=== PATIENT | male | born 1940 | race Caucasian/White ===

== ENCOUNTER 2019-04-15 12:54 | Inpatient (IN) | payer OTHER, MEDICARE ==
[~2019-04-15] VITALS: Ht 165.1 cm; Wt 86.4 kg
[~2019-04-15 12:54] MED LIST: ACCUNEB 0.0.63 MG/3 INH; AUGMENTIN 500 M1 TAB PO; COUMADIN2.5 M1 PO; LASIX20 MG PO; LOPRESSOR25 MG PO; Lovenox40 MG/0.4 SC; MULTI VITAMIN/M1 TAB PO; OMEPRAZOLE D/R20 MG PO; PREVACID SOLUTA30 MG PO; SIMVASTATIN80 MG PO; SPIRIVA -- 3018 MCG PO; ULTRAM50 MG PO; VICODIN 5/500 505 MG PO; ZOFRAN ODT4 MG SL
[2019-04-15 13:05] VITALS: BP 143/95
[2019-04-15 13:26] LABS: BASO % 0.6 % (0.0-1.0); EOS # 0.1 10*3/uL (0.0-0.4); EOS % 0.7 % (1.0-4.0); HEMATOCRIT 45.3 % (42.0-52.0); HEMOGLOBIN 14.6 g/dl (14.0-18.0); LYMPH # 1.1 10*3/uL (1.3-4.4); LYMPH % 15.3 % (27.0-41.0); MEAN CELL VOLUME 94.2 fl (80.0-94.0); MEAN CORPUSCULAR HGB 30.4 pg (27.0-31.0); MEAN CORPUSCULAR HGB CONC 32.2 g/dl (33.0-37.0); MEAN PLATELET VOLUME 9.2 fl (9.6-12.3); MONO # 0.9 10*3/uL (0.1-1.0); MONO % 12.5 % (3.0-9.0); NEUT # 4.9 10*3/uL (2.3-7.9); NEUT % 70.6 % (47.0-73.0); PLATELET COUNT AUTOMATED 227 10*3/uL (130-400); RED BLOOD COUNT 4.81 10*6/uL (4.50-5.90); RED CELL DISTRI WIDTH 14.3 % (0-14.5); WHITE BLOOD COUNT 6.9 10*3/uL (4.8-10.8)
[2019-04-15 13:36] LABS: ACT PARTIAL THROMBO TIME 26.4 SECONDS (20.0-32.1)
[2019-04-15 13:43] LABS: ALBUMIN 3.6 gm/dl (3.1-4.5); ALKALINE PHOSPHATASE 78 U/L (45-117); BUN 19 mg/dl (7-24); CHLORIDE 103 mmol/L (98-107); CREATININE 1.21 mg/dL (0.70-1.30); SGOT/AST 27 IU/L (3-35); SGPT/ALT 24 U/L (12-78); SODIUM 135 mmol/L (136-145); TOTAL PROTEIN 7.3 gm/dL (6.4-8.2)
[2019-04-15 13:44] LABS: POTASSIUM 4.8 mmol/L (3.5-5.1); TROPONIN I < 0.015 ng/ml (<0.045)
[2019-04-15 14:05] VITALS: BP 134/68
[2019-04-15 15:05] VITALS: BP 127/70
[2019-04-15 16:00] VITALS: BP 146/86
--- NOTE | 2019-04-15 16:00 | NUR ---
A 78, admitted to , under the services of SABAS Messer DO with a diagnosis of RESPIRATORY FAILURE. Chief complaint is SHORT OF BREATH. Patient arrived via stretcher from ER. Monitor applied. Initial assessment completed. Vital signs taken and recorded. SABAS MESSER DO notified of admission to the unit. Orders received. See assessment for past medical history, medications and allergies. Patient and/or family oriented to unit. [facility] visitation policy reviewed. Clothing/patient valuable form completed. BAYRON CONN
[2019-04-15 16:03] VITALS: BP 136/60
--- NOTE | 2019-04-15 16:29 | NUR ---
DR. MALDONADO AWARE OF CONSULT.
[2019-04-15] MEDS ORDERED: ELIQUIS5 M1 PO (16:54)
[2019-04-15] MEDS ORDERED: PROTONIX IV40 MG PO (16:55)
[2019-04-15] MEDS ORDERED: PLAVIX75 M1 PO (16:56)
[2019-04-15] MEDS ORDERED: CREON DR 12,001 EACH PO (16:56)
[2019-04-15] MEDS ORDERED: LOSARTAN POTASS25 M1 PO (16:57)
[2019-04-15] MEDS ORDERED: PRESERVISION A1 EAC1 PO (16:58)
[2019-04-15] MEDS ORDERED: FLOMAX0.4 MG PO (16:58)
[2019-04-15] MEDS ORDERED: VITAMIN C500 M8 PO (16:59)
[2019-04-15] MEDS ORDERED: SYMB160 INH (17:00)
--- NOTE | 2019-04-15 19:33 | NUR ---
PATIENT SITTING TO THE SIDE OF BED EATING, DENIES ANY CHEST PAIN AT THIS TIME. PATIENT STATED HE IS TO GET A STRESS TEST TOMORROR, MADE AWARE HE WILL BE NPO AT MIDNIGHT. PATIENT STATES HE IS BREATHING BETTER WITH THE DUONEBS. PATIENT LEFT WITH CALL LIGHT IN REACH.
[2019-04-15 20:00] VITALS: BP 128/73
--- NOTE | 2019-04-15 23:44 | NUR ---
24 HR chart check completed.
[2019-04-16] VITALS: BP 140/77
[2019-04-16 07:09] LABS: EOS # 0.1 10*3/uL (0.0-0.4); HEMATOCRIT 44.1 % (42.0-52.0); HEMOGLOBIN 14.3 g/dl (14.0-18.0); LYMPH # 0.6 10*3/uL (1.3-4.4); LYMPH % 10.7 % (27.0-41.0); MEAN CELL VOLUME 94.8 fl (80.0-94.0); MEAN CORPUSCULAR HGB 30.8 pg (27.0-31.0); MEAN CORPUSCULAR HGB CONC 32.4 g/dl (33.0-37.0); MONO # 0.1 10*3/uL (0.1-1.0); MONO % 2.3 % (3.0-9.0); NEUT % 84.5 % (47.0-73.0); PLATELET COUNT AUTOMATED 211 10*3/uL (130-400); RED BLOOD COUNT 4.65 10*6/uL (4.50-5.90); RED CELL DISTRI WIDTH 14.3 % (0-14.5)
[2019-04-16 07:34] LABS: BUN 19 mg/dl (7-24); CHLORIDE 104 mmol/L (98-107); CREATININE 1.03 mg/dL (0.70-1.30); PHOSPHOROUS 3.4 mg/dL (2.5-4.9); SODIUM 140 mmol/L (136-145)
[2019-04-16 07:43] VITALS: BP 100/60
--- NOTE | 2019-04-16 07:51 | NUR ---
PT SITTING UP IN BED, RECEIVING A BREATHING TREATMENT MATEO KHOURY SPBHARATHI
[2019-04-16 08:00] VITALS: BP 132/84
--- NOTE | 2019-04-16 08:00 | NUR ---
PT RESTING IN BED COMFORTABLY WITH NO COMPLAINTS AT THIS TIME. PT REMAINS NPO FOR STRESS TEST. GENA MARIE IRASEMA
[2019-04-16 08:42] LABS: VITAMIN D, 25-HYDROXY 37.1 ng/mL (30-100)
--- NOTE | 2019-04-16 09:00 | NUR ---
[employer] in to talk to patient. Patient states lives at home with . There are 9 steps in the home. Physician: cary templeton Pharmacy: Home health services: none Patient's level of ADLs: INDEPENDENT Patient has working utilities: all working DME: [employer] Follow-up physician's appointment after d/c: will be made by hospitalist nurse director upon discharge Does patient want to access PORTAL?: no Discharge plan discussed with patient, he states he lives at home with his , he is independent in adls and ambulation, drives, he states he has a nebulizer at home, but not home oxygen, discussed with him a discharge plan and he stated he would return home and at this time denies any home needs, discussed with him VNA and educated him about the services he offered, he declines any home needs at this time . CLIVE CHURCHILL
--- NOTE | 2019-04-16 09:52 | NUR ---
PT SITTING UP IN BED, HAS VISITORS. NO COMPLAINTS AT THIS TIME. GENA MARIE FORMERLY NAMED [facility]
--- NOTE | 2019-04-16 10:02 | NUR ---
PT OFF THE FLOOR FOR CARDIAC REHAB. GENA MARIE SPIRASEMACC
--- NOTE | 2019-04-16 10:59 | NUR ---
INFORMED CONSENT SIGNED FOR LEXISCAN STRESS TEST WITH DR. BRANNON. RESTING EKG AFIB, HR 83, BP 102/60. PULSE OX 95% ON 3L/NC WITH EXPIRATORY WHEEZED BILATERALLY. COMPLETED ONE MINUTE OF LEXISCAN PROTOCOL RECEIVING LEXISCAN 0.4MG OVER 10 SECONDS. RARE PVC'S NOTED WITH NO ST CHANGES. PT C/O SOB. LAST RECOVERY HR 100, BP 94/58. WAITING NUCLEAR SCANNING IN STABLE CONDITION.
[2019-04-16 12:00] VITALS: BP 123/86
--- NOTE | 2019-04-16 12:25 | NUR ---
PT BACK ON FLOOR FROM CARDIAC REHAB. GENA MARIE SPIRASEMACC
--- NOTE | 2019-04-16 12:52 | NUR ---
PT SITTING UP ON THE SIDE OF THE BED VISITING WITH FAMILY. GENA MARIE SPNRCC
--- NOTE | 2019-04-16 13:20 | NUR ---
PT SITTING ON SIDE OF THE BED. RECIEVED BREATHING TREATMENT FROM RESPIRATORY THERAPY FOR C/O SOB. BREATHING TREATMENT EFFECTIVE. GENA MARIE
[2019-04-16] MEDS ORDERED: CREON 3000 PO (15:50)
[2019-04-16 16:00] VITALS: BP 100/61
[2019-04-16 20:00] VITALS: BP 99/61
[2019-04-17] VITALS: BP 102/60
[2019-04-17 06:14] LABS: BASO % 0.1 % (0.0-1.0); HEMATOCRIT 44.5 % (42.0-52.0); LYMPH # 0.7 10*3/uL (1.3-4.4); LYMPH % 5.1 % (27.0-41.0); MEAN CELL VOLUME 96.7 fl (80.0-94.0); MEAN CORPUSCULAR HGB 30.4 pg (27.0-31.0); MEAN CORPUSCULAR HGB CONC 31.5 g/dl (33.0-37.0); MEAN PLATELET VOLUME 9.3 fl (9.6-12.3); MONO # 0.6 10*3/uL (0.1-1.0); MONO % 4.4 % (3.0-9.0); PLATELET COUNT AUTOMATED 229 10*3/uL (130-400); RED CELL DISTRI WIDTH 14.4 % (0-14.5); WHITE BLOOD COUNT 14.4 10*3/uL (4.8-10.8)
[2019-04-17 06:25] LABS: BUN 25 mg/dl (7-24); CHLORIDE 104 mmol/L (98-107); CREATININE 1.05 mg/dL (0.70-1.30); POTASSIUM 4.4 mmol/L (3.5-5.1); SODIUM 141 mmol/L (136-145)
--- NOTE | 2019-04-17 06:28 | NUR ---
24 HR chart check completed.
[2019-04-17 08:00] VITALS: BP 116/68
--- NOTE | 2019-04-17 10:50 | NUR ---
PT WAS ASSESSED FOR HOME OXYGEN. PT QUALIFIES PT AT REST 93% RA, HR 94, RR 16, B/P 116/68 PT AMBULATED SPO2 87-88% PLACED PT ON 2LNC, SPO2 INCREASED TO 91% PT AT REST 92% ON 2LNC, HR 68, RR 18, B/P 81/64 RN NOTIFIED AND NOTIFIED
[2019-04-17] MEDS ORDERED: ASPIRIN CHEWABL81 M1 PO (11:51)
[2019-04-17] MEDS ORDERED: ATORVASTATIN CA40 M1 PO (11:51)
[2019-04-17] MEDS ORDERED: PREDNISONE10 MG PO (11:51)
[2019-04-17] MEDS ORDERED: DOXYCYCLINE100 M3 PO (11:51)
[2019-04-17 12:00] VITALS: BP 116/80
[2019-04-17 16:00] VITALS: BP 99/73
[2019-04-17 20:00] VITALS: BP 113/64
--- NOTE | 2019-04-17 23:59 | NUR ---
PT INSTRUCTED ON USE OF FLUTTER VALUE. PT EXHIBITS PROPER TECHNIQUE WITH GOOD EFFORT OF DEVICE. PT INSTRUCTED TO PERFORM X 10 BREATHS EVERY Q1 HR. WILL CONTINUE TO REASSES NEEDED.
[2019-04-18] VITALS: BP 133/71
--- NOTE | 2019-04-18 07:15 | NUR ---
PT RESTING IN BED. NO COMPLAINTS AT THIS TIME. 4L NC IN PLACE. PT DENIES SOB AT REST. ASSESSMENT COMPLETE. REPIRATIONS EASY AND REGUAR. CALL LIGHT IN REACH. WILL CONTINUE TO MONITOR.
[2019-04-18 08:00] VITALS: BP 140/80
[2019-04-18 12:00] VITALS: BP 141/72
--- NOTE | 2019-04-18 14:50 | NUR ---
PT RESTING IN BED. FAMILY AT BEDSIDE. NO COMPLAINTS AT THIS TIME. 4L O2 IN PLACE. CALL LIGHT WITHIN REACH. WILL CONTINUE TO MONITOR.
--- NOTE | 2019-04-18 15:01 | NUR ---
24 HR chart check completed.
[2019-04-18 16:00] VITALS: BP 162/74
[2019-04-18 16:30] VITALS: BP 144/76
[2019-04-18 20:00] VITALS: BP 127/63
[2019-04-19] VITALS: BP 147/83
--- NOTE | 2019-04-19 05:27 | NUR ---
PATIENT RESTING IN BED. NO COMPLAINTS AT THIS TIME. CALL LIGHT WITHIN REACH.
[2019-04-19 07:45] VITALS: BP 126/78
--- NOTE | 2019-04-19 07:45 | NUR ---
ASSESSMENT COMPLETED AND DOCUMENTED. PT SITTING UP ON SIDE OF BED. PLEASANT, COOPERATIVE, SPEECH CLEAR. PRODUCTIVE COUGH, EXPIRATORY WHEEZES. PT DENIES CHEST PAIN OR SOB AT REST. HE DOES HAVE SOB ON EXERTION. O2 INTACT, CONTINUOUS ARASH MAHARAJCC
--- NOTE | 2019-04-19 07:59 | NUR ---
PT RESTING IN BED. NO COMPLAINTS AT THIS TIME. 4L [address] ASSESSMENT COMPLETE. CALL LIGHT KRISYOLANDA ADAMS. WILL CONTINUE TO MONITOR.
--- NOTE | 2019-04-19 09:00 | NUR ---
case management visits with patient, he states he will return home when medically stable and denies any home needs
--- NOTE | 2019-04-19 09:45 | NUR ---
PT LAYING IN BED COMFORTABLE, NO S/S OF DISTRESS. PT DENIES SOB AT REST OR CHEST PAIN. ARASH MAHARAJCC
[2019-04-19 12:00] VITALS: BP 119/85
--- NOTE | 2019-04-19 12:30 | NUR ---
PT SITTING ON BED IN ROOM COMFORTABLE. NO S/S OF DISTRESS, PT HAS PRODUCTIVE COUGH, YELLOW IN COLOR, DENIES CHEST PAIN AND SOB, AT BEDSIDE ARASH SPIRASEMACC
--- NOTE | 2019-04-19 13:20 | NUR ---
PT WALKED AROUND HALLWAYS WITH BY HIS SIDE, SPO2 HELD AT 93-94% WITH 2L PORTABLE OXYGEN, DENIES PAIN OR SOB. STATES ABOUT 15 MINS INTO WALKING HE FELT FATIGUE. PT IS NOW RESTING IN BED WITH AT BEDSIDE O2 STAT 95% REPORT GIVEN TO SERA ANTOINE SPCC
[2019-04-19 16:00] VITALS: BP 150/76
[2019-04-19 20:00] VITALS: BP 135/86
--- NOTE | 2019-04-19 22:00 | NUR ---
24 HOUR CHART CHECK COMPLETE
[2019-04-20] VITALS: BP 160/57
[2019-04-20 08:00] VITALS: BP 114/76
--- NOTE | 2019-04-20 08:50 | NUR ---
MEDICATED WITH PRN PO DULCOLAX FOR CONSTIPATION.
--- NOTE | 2019-04-20 10:06 | NUR ---
LEFT MESSAGE ON PODIATRY RESIDENT'S CELL PHONE RE: CONSULT FOR [facility].
[2019-04-20 12:00] VITALS: BP 130/77
--- NOTE | 2019-04-20 12:05 | NUR ---
case management visits with patient, present, discussed with them a discharge plan including a short term long term for rehab, and patient declined, stated patient would be returning home when medically stable, also discussed with them VNA and they were receptive to this, stated she would like OV to patient at home, also discussed with them home oxygen, patient is also a [facility] and discussed with them patient being able to have [facility] pay for his oxygen and declined, she stated she has used a [employer] in [place] for supplies and would like to use them if patient needed oxygen, case management will follow for any other home needs
--- NOTE | 2019-04-20 12:20 | NUR ---
HOME O2 ASSESSMENT: PRE BP: 130/77, HR 102, RR 24, PULSE OX 89% ON ROOM AIR AT REST. AMBULATED PATIENT APPROX 50 FT, PULSE OX DECREASED TO 86% ON ROOM AIR WHILE AMBULATING. PLACED 2 L/M ON PATIENT, SAT >90% WHILE AMBULATING, >3 L/M-SAT>93% WHILE AMBULATING. PATIENT VISIBLY SHORT OF BREATH. POST BP: 121/87, HR 105, RR 24, PULSE OX 92% ON 2 L/M AT REST. RN NOTIFIED.
--- NOTE | 2019-04-20 15:08 | NUR ---
O2 TANK HAS BEEN DELIVERED TO THE PATIENT'S ROOM BY NE REP. Discharge instructions reviewed with patient/family. Patient receptive and verbalizes understanding. Follow-up care arranged. Written instructions given to patient/family. PATIENT TAKING BREATHING TREATMENT PRIOR TO DISCHARGE, IS AT BEDSIDE. DIANA GARCIA
--- NOTE | 2019-04-20 15:35 | NUR ---
PATIENT DISCHARGED TO FRONT LOBBY BY WHEELCHAIR, ACCOMPANIED BY [facility], FOR TRANSPORT HOME BY PRIVATE VEHICLE WITH .
== END 2019-04-20 15:35 | disposition home or self-care (01) | DRG 291 ==
LOC: ED 12:54 → 4E 15:27 → EDHOLD 15:27 → 4E 15:42
PROVIDERS: Emergency Medicine; Family Medicine; Internal Medicine; ADMIT Internal Medicine
PROC: 4A02XM4 Measurement of Cardiac Total Activity, External Approach (ICD-10-PCS; principal; 2019-04-16)
PROC: 3E073KZ Introduction of Other Diagnostic Substance into Coronary Artery, Percutaneous Approach (ICD-10-PCS; principal; 2019-04-16)
DX: I11.0 Hypertensive heart disease with heart failure (principal); J18.9 Pneumonia, unspecified organism; J96.01 Acute respiratory failure with hypoxia; J44.0 Chronic obstructive pulmonary disease with (acute) lower respiratory infection; J44.1 Chronic obstructive pulmonary disease with (acute) exacerbation; G45.9 Transient cerebral ischemic attack, unspecified; I50.33 Acute on chronic diastolic (congestive) heart failure; I25.119 Atherosclerotic heart disease of native coronary artery with unspecified angina pectoris; I48.0 Paroxysmal atrial fibrillation; R79.89 Other specified abnormal findings of blood chemistry; Z95.1 Presence of aortocoronary bypass graft; Z95.5 Presence of coronary angioplasty implant and graft; Z88.0 Allergy status to penicillin; Z79.01 Long term (current) use of anticoagulants; Z79.899 Other long term (current) drug therapy; Z87.891 Personal history of nicotine dependence; Z82.49 Family history of ischemic heart disease and other diseases of the circulatory system; Z86.73 Personal history of transient ischemic attack (TIA), and cerebral infarction without residual deficits; I25.2 Old myocardial infarction

== ENCOUNTER 2020-06-30 04:27 | Inpatient (IN) | payer MEDICARE, OTHER ==
[~2020-06-30] VITALS: Ht 167.6 cm; Wt 93.4 kg
[2020-06-30] VITALS (8 sets, daily range): BP systolic 95–143; BP diastolic 55–82
[~2020-06-30 04:27] MED LIST changes: +ASPIRIN CHEWABL81 M1 PO; +ATORVASTATIN CA40 M1 PO; +CREON 3000 PO; +CREON DR 12,001 EACH PO; +DOXYCYCLINE100 M3 PO; +ELIQUIS5 M1 PO; +FLOMAX0.4 MG PO; +LOSARTAN POTASS25 M1 PO; +PLAVIX75 M1 PO; +PREDNISONE10 MG PO; +PRESERVISION A1 EAC1 PO; +PROTONIX IV40 MG PO; +SYMB160 INH; +VITAMIN C500 M8 PO
[2020-06-30 05:57] LABS: ALBUMIN 3.5 gm/dl (3.1-4.5); ALKALINE PHOSPHATASE 90 U/L (45-117); BUN 18 mg/dl (7-24); CHLORIDE 107 mmol/L (98-107); CREATININE 1.12 mg/dL (0.70-1.30); POTASSIUM 3.8 mmol/L (3.5-5.1); SGOT/AST 13 IU/L (3-35); SGPT/ALT 22 U/L (12-78); SODIUM 139 mmol/L (136-145); TOTAL PROTEIN 6.8 gm/dL (6.4-8.2)
[2020-06-30 06:08] LABS: TROPONIN I < 0.015 ng/ml (<0.045)
[2020-06-30 06:17] LABS: BASO % 0.2 % (0.0-1.0); EOS % 0.3 % (1.0-4.0); HEMATOCRIT 44.5 % (42.0-52.0); LYMPH # 0.9 10*3/uL (1.3-4.4); LYMPH % 6.9 % (27.0-41.0); MEAN CELL VOLUME 95.7 fl (80.0-94.0); MEAN CORPUSCULAR HGB 30.8 pg (27.0-31.0); MEAN CORPUSCULAR HGB CONC 32.1 g/dl (33.0-37.0); MEAN PLATELET VOLUME 9.5 fl (9.6-12.3); MONO # 0.4 10*3/uL (0.1-1.0); MONO % 2.6 % (3.0-9.0); NEUT # 11.7 10*3/uL (2.3-7.9); NEUT % 88.8 % (47.0-73.0); PLATELET COUNT AUTOMATED 231 10*3/uL (130-400); RED BLOOD COUNT 4.65 10*6/uL (4.50-5.90); RED CELL DISTRI WIDTH 13.8 % (0-14.5); WHITE BLOOD COUNT 13.2 10*3/uL (4.8-10.8)
[2020-06-30 06:18] LABS: INTERNATIONAL NORM RATIO 1.1 (2.0-3.5)
[2020-07-01] VITALS: BP 117/59
[2020-07-01 06:39] LABS: HEMATOCRIT 39.6 % (42.0-52.0); MEAN CELL VOLUME 95.4 fl (80.0-94.0); MEAN CORPUSCULAR HGB 30.8 pg (27.0-31.0); MEAN CORPUSCULAR HGB CONC 32.3 g/dl (33.0-37.0); MEAN PLATELET VOLUME 9.4 fl (9.6-12.3); PLATELET COUNT AUTOMATED 215 10*3/uL (130-400); RED BLOOD COUNT 4.15 10*6/uL (4.50-5.90); RED CELL DISTRI WIDTH 14.2 % (0-14.5); WHITE BLOOD COUNT 27.2 10*3/uL (4.8-10.8)
[2020-07-01 06:57] LABS: CHLORIDE 104 mmol/L (98-107); POTASSIUM 4.2 mmol/L (3.5-5.1); SODIUM 139 mmol/L (136-145)
[2020-07-01 07:09] LABS: ALKALINE PHOSPHATASE 60 U/L (45-117); BUN 23 mg/dl (7-24); CHOLESTEROL 57 mg/dL (<200); CREATININE 1.08 mg/dL (0.70-1.30); FREE T4 1.15 ng/dl (0.76-1.46); HDL CHOLESTEROL 39 mg/dl (40-60); LDL CHOLESTEROL 10 mg/dL (9-159); SGOT/AST 13 IU/L (3-35); SGPT/ALT 19 U/L (12-78); THYROID STIM HORMONE (HS) 0.217 uIU/ml (0.358-4.75); TOTAL PROTEIN 6.4 gm/dL (6.4-8.2); TRIGLYCERIDES 39 mg/dl (<150); VLDL CHOLESTEROL 8 mg/dL (6-40)
[2020-07-01 07:17] LABS: VITAMIN D, 25-HYDROXY 27.1 ng/mL (30-100)
[2020-07-01 07:42] LABS: PLATELET SUFFICIENCY NORMAL (NORMAL); TOTAL CELLS COUNTED 100 #CELLS
[2020-07-01 08:00] VITALS: BP 110/60
[2020-07-01 12:00] VITALS: BP 129/71
[2020-07-01 16:00] VITALS: BP 127/60
[2020-07-01 20:00] VITALS: BP 116/51
[2020-07-02] VITALS: BP 146/84
[2020-07-02 05:59] LABS: HEMATOCRIT 38.6 % (42.0-52.0); MEAN CELL VOLUME 93.2 fl (80.0-94.0); MEAN CORPUSCULAR HGB 30.4 pg (27.0-31.0); MEAN CORPUSCULAR HGB CONC 32.6 g/dl (33.0-37.0); MEAN PLATELET VOLUME 9.4 fl (9.6-12.3); PLATELET COUNT AUTOMATED 226 10*3/uL (130-400); RED BLOOD COUNT 4.14 10*6/uL (4.50-5.90); RED CELL DISTRI WIDTH 14.2 % (0-14.5)
[2020-07-02 07:19] LABS: PLATELET SUFFICIENCY NORMAL (NORMAL); TOTAL CELLS COUNTED 100 #CELLS
[2020-07-02 08:23] VITALS: BP 128/64
[2020-07-02 11:17] VITALS: BP 137/61
[2020-07-02 15:25] VITALS: BP 133/80
[2020-07-02 20:00] VITALS: BP 127/92
[2020-07-02 23:44] VITALS: BP 141/64
[2020-07-03 08:55] VITALS: BP 140/56
[2020-07-03 12:00] VITALS: BP 144/65
[2020-07-03] MEDS ORDERED: VITAMIN D350 MC2 PO (12:23)
[2020-07-03] MEDS ORDERED: MUCUS RELIEF600 MG PO (12:23)
[2020-07-03] MEDS ORDERED: LEVOFLOXACIN750 M2 PO (12:23)
== END 2020-07-03 15:30 | disposition home or self-care (01) | DRG 871 ==
LOC: ED 04:27 → EDHOLD 06:47 → 5E 06:47
PROVIDERS: Emergency Medicine; Hospitalist; Internal Medicine; ADMIT Internal Medicine; ATTEND Internal Medicine
PROC: 5A09357 Assistance with Respiratory Ventilation, Less than 24 Consecutive Hours, Continuous Positive Airway Pressure (ICD-10-PCS; principal; 2020-06-30)
DX: A41.9 Sepsis, unspecified organism (principal); J18.9 Pneumonia, unspecified organism; J96.01 Acute respiratory failure with hypoxia; J44.1 Chronic obstructive pulmonary disease with (acute) exacerbation; R04.2 Hemoptysis; K92.0 Hematemesis; J44.0 Chronic obstructive pulmonary disease with (acute) lower respiratory infection; R65.20 Severe sepsis without septic shock; I48.91 Unspecified atrial fibrillation; I25.10 Atherosclerotic heart disease of native coronary artery without angina pectoris; R79.82 Elevated C-reactive protein (CRP); E66.9 Obesity, unspecified; I50.9 Heart failure, unspecified; I11.0 Hypertensive heart disease with heart failure; K43.9 Ventral hernia without obstruction or gangrene; Z95.1 Presence of aortocoronary bypass graft; Z88.0 Allergy status to penicillin; Z86.73 Personal history of transient ischemic attack (TIA), and cerebral infarction without residual deficits; I25.2 Old myocardial infarction; Z95.5 Presence of coronary angioplasty implant and graft; Z87.891 Personal history of nicotine dependence; Z80.42 Family history of malignant neoplasm of prostate; Z82.49 Family history of ischemic heart disease and other diseases of the circulatory system; Z79.82 Long term (current) use of aspirin; Z79.899 Other long term (current) drug therapy; Z68.33 Body mass index [BMI] 33.0-33.9, adult

== ENCOUNTER 2021-01-29 02:36 | Emergency (ER) | payer OTHER ==
[~2021-01-29] VITALS: Ht 162.5 cm; Wt 82.6 kg
[~2021-01-29 02:36] MED LIST changes: +LEVOFLOXACIN750 M2 PO; +MUCUS RELIEF600 MG PO; +VITAMIN D350 MC2 PO
[2021-01-29 03:09] LABS: BASO # 0.1 10*3/uL (0.0-0.1); BASO % 0.7 % (0.0-1.0); EOS # 0.2 10*3/uL (0.0-0.4); EOS % 1.7 % (1.0-4.0); HEMATOCRIT 46.5 % (42.0-52.0); LYMPH # 3.1 10*3/uL (1.3-4.4); MEAN CELL VOLUME 96.7 fl (80.0-94.0); MEAN CORPUSCULAR HGB 30.6 pg (27.0-31.0); MEAN CORPUSCULAR HGB CONC 31.6 g/dl (33.0-37.0); MEAN PLATELET VOLUME 8.8 fl (9.6-12.3); MONO # 0.9 10*3/uL (0.1-1.0); MONO % 9.8 % (3.0-9.0); NEUT # 4.7 10*3/uL (2.3-7.9); NEUT % 52.6 % (47.0-73.0); PLATELET COUNT AUTOMATED 252 10*3/uL (130-400); RED BLOOD COUNT 4.81 10*6/uL (4.50-5.90); RED CELL DISTRI WIDTH 13.6 % (0-14.5)
[2021-01-29 03:25] LABS: ALBUMIN 3.6 gm/dl (3.1-4.5); ALKALINE PHOSPHATASE 72 U/L (45-117); BUN 19 mg/dl (7-24); CHLORIDE 107 mmol/L (98-107); CREATININE 1.03 mg/dL (0.70-1.30); LIPASE 20 U/L (73-393); SGOT/AST 16 IU/L (3-35); SGPT/ALT 24 U/L (12-78); SODIUM 139 mmol/L (136-145); TOTAL PROTEIN 7.2 gm/dL (6.4-8.2)
== END 2021-01-29 11:08 | disposition short-term general hospital (02) ==
LOC: ED 02:36
PROVIDERS: Emergency Medicine
DX: K43.9 Ventral hernia without obstruction or gangrene (principal); Z20.822 Contact with and (suspected) exposure to COVID-19; R10.9 Unspecified abdominal pain; J44.9 Chronic obstructive pulmonary disease, unspecified; I48.91 Unspecified atrial fibrillation; I25.10 Atherosclerotic heart disease of native coronary artery without angina pectoris; I10 Essential (primary) hypertension; Z88.0 Allergy status to penicillin; Z79.899 Other long term (current) drug therapy; Z87.891 Personal history of nicotine dependence

== ENCOUNTER 2021-12-06 09:53 | Emergency (ER) | payer OTHER ==
[~2021-12-06] VITALS: Ht 165.1 cm; Wt 83.0 kg
[2021-12-06 11:11] LABS: BASO % 0.3 % (0.0-1.0); EOS # 0.1 10*3/uL (0.0-0.4); EOS % 0.8 % (1.0-4.0); HEMATOCRIT 40.7 % (42.0-52.0); LYMPH # 1.9 10*3/uL (1.3-4.4); LYMPH % 25.8 % (27.0-41.0); MEAN CELL VOLUME 94.4 fl (80.0-94.0); MEAN CORPUSCULAR HGB 31.8 pg (27.0-31.0); MEAN CORPUSCULAR HGB CONC 33.7 g/dl (33.0-37.0); MONO # 0.9 10*3/uL (0.1-1.0); MONO % 11.6 % (3.0-9.0); NEUT # 4.5 10*3/uL (2.3-7.9); NEUT % 61.2 % (47.0-73.0); PLATELET COUNT AUTOMATED 187 10*3/uL (130-400); RED BLOOD COUNT 4.31 10*6/uL (4.50-5.90); RED CELL DISTRI WIDTH 13.9 % (0-14.5); WHITE BLOOD COUNT 7.4 10*3/uL (4.8-10.8)
[2021-12-06 11:21] LABS: ACT PARTIAL THROMBO TIME 30.5 SECONDS (20.0-32.1); INTERNATIONAL NORM RATIO 1.2 (2.0-3.5)
[2021-12-06 11:28] LABS: BILIRUBIN Negative (Negative); BLOOD Negative (Negative); CLARITY Clear (Clear); COLOR Yellow (Yellow); GLUCOSE Negative (Negative); KETONE Negative (Negative); LEUKO ESTERASE Negative (Negative); NITRITE Negative (Negative); SPECIFIC GRAVITY 1.015 (1.001-1.030)
[2021-12-06 11:31] LABS: ALKALINE PHOSPHATASE 71 U/L (45-117); BUN 25 mg/dl (7-24); CHLORIDE 109 mmol/L (98-107); CREATININE 0.89 mg/dL (0.70-1.30); SGOT/AST 14 IU/L (3-35); SGPT/ALT 20 U/L (12-78); SODIUM 142 mmol/L (136-145); TOTAL PROTEIN 6.6 gm/dL (6.4-8.2)
[2021-12-06 11:57] LABS: EPITHELIAL CELLS 0-2
[2021-12-06 11:58] LABS: MUCOUS TRACE
== END 2021-12-06 13:38 | disposition home or self-care (01) ==
LOC: ED 09:53
PROVIDERS: Nurse Practitioner Family
DX: M79.604 Pain in right leg (principal); Z88.0 Allergy status to penicillin; Z79.899 Other long term (current) drug therapy; Z87.891 Personal history of nicotine dependence

== ENCOUNTER 2023-01-06 15:23 | Emergency (ER) | payer OTHER ==
[~2023-01-06] VITALS: Ht 165.1 cm; Wt 79.4 kg
[~2023-01-06 15:23] MED LIST changes: -AVPAK AZITHROM250 M1 PO; -DEXAMETHASONE6 MG PO
[2023-01-06 16:08] LABS: BASO % 0.5 % (0.0-1.0); EOS % 0.2 % (1.0-4.0); LYMPH # 0.7 10*3/uL (1.3-4.4); LYMPH % 10.6 % (27.0-41.0); MEAN CELL VOLUME 90.7 fl (80.0-94.0); MEAN CORPUSCULAR HGB 30.5 pg (27.0-31.0); MEAN CORPUSCULAR HGB CONC 33.7 g/dl (33.0-37.0); MONO % 15.2 % (3.0-9.0); NEUT # 4.8 10*3/uL (2.3-7.9); NEUT % 73.3 % (47.0-73.0); PLATELET COUNT AUTOMATED 190 10*3/uL (130-400); RED BLOOD COUNT 4.52 10*6/uL (4.50-5.90); RED CELL DISTRI WIDTH 14.2 % (0-14.5); WHITE BLOOD COUNT 6.6 10*3/uL (4.8-10.8)
[2023-01-06 16:32] LABS: ALKALINE PHOSPHATASE 97 U/L (46-116); BUN 15 mg/dl (9-23); CHLORIDE 101 mmol/L (98-107); POTASSIUM 4.3 mmol/L (3.4-5.1); SGPT/ALT 15 U/L (5-49); TOTAL PROTEIN 6.9 gm/dL (6.0-8.0)
[2023-01-06 16:42] LABS: ACT PARTIAL THROMBO TIME 34.4 SECONDS (20.0-32.1)
[2023-01-06] MEDS ORDERED: DEXAMETHASONE6 MG PO (17:33)
[2023-01-06] MEDS ORDERED: AVPAK AZITHROM250 M1 PO (17:33)
== END 2023-01-06 17:51 | disposition home or self-care (01) ==
LOC: ED 15:23
PROVIDERS: Emergency Medicine
DX: J44.1 Chronic obstructive pulmonary disease with (acute) exacerbation (principal); U07.1 COVID-19; I10 Essential (primary) hypertension; I25.10 Atherosclerotic heart disease of native coronary artery without angina pectoris; I48.91 Unspecified atrial fibrillation; E11.9 Type 2 diabetes mellitus without complications; E78.5 Hyperlipidemia, unspecified; Z88.0 Allergy status to penicillin; Z98.890 Other specified postprocedural states; Z87.891 Personal history of nicotine dependence

== ENCOUNTER → 2023-01-06 | Outpatient (CLI) | payer OTHER ==
[~2023-01-06] MED LIST changes: +ANORO ELLIPTA1 EACH INH; +AVPAK AZITHROM250 M1 PO; +CETIRIZINE10 MG PO; +CLARITIN10 MG PO; +DEXAMETHASONE6 MG PO; +LIPITOR80 MG PO; +LOPRESSOR50 M1 PO; +METFORMIN HCL500 M2 PO; +OMNICEF300 MG PO; +VENT7GM INH; +ZITHROMAX250 MG PO
== END | disposition home or self-care (01) ==
LOC: CARD 09:30
PROVIDERS: ATTEND Student in an Organized Health Care Education/Training Program
DX: I08.2 Rheumatic disorders of both aortic and tricuspid valves (principal); I27.20 Pulmonary hypertension, unspecified; I48.91 Unspecified atrial fibrillation

== ENCOUNTER → 2023-03-06 | Outpatient (CLI) | payer OTHER ==
[~2023-03-06] MED LIST changes: +AVPAK AZITHROM250 M1 PO; +DEXAMETHASONE6 MG PO
== END | disposition home or self-care (01) ==
LOC: CT 02-05 14:00
PROVIDERS: ATTEND Internal Medicine Critical Care Medicine
DX: R91.1 Solitary pulmonary nodule (principal); J43.9 Emphysema, unspecified; I25.10 Atherosclerotic heart disease of native coronary artery without angina pectoris; I71.9 Aortic aneurysm of unspecified site, without rupture; R91.8 Other nonspecific abnormal finding of lung field; M47.814 Spondylosis without myelopathy or radiculopathy, thoracic region

== ENCOUNTER → 2023-07-23 | Outpatient (CLI) | payer OTHER ==
[2023-07-23 14:16] LABS: BUN 19 mg/dl (9-23); CHLORIDE 106 mmol/L (98-107); POTASSIUM 4.2 mmol/L (3.4-5.1)
== END | disposition home or self-care (01) ==
LOC: LAB 13:38
PROVIDERS: ATTEND Internal Medicine
DX: R06.02 Shortness of breath (principal)

== ENCOUNTER 2023-07-26 20:06 | Emergency (ER) | payer OTHER ==
[~2023-07-26] VITALS: Ht 165.1 cm; Wt 86.2 kg
[2023-07-26] MEDS ORDERED: Albuterol Sulf/Ipratropium 3 ML VIAL NEB ONE (20:25)
[2023-07-26] MEDS ORDERED: methylPREDNISolone sod succ 125 MG VIAL IV ONE (20:25)
[2023-07-26 20:47] LABS: BASO # 0.1 10*3/uL (0.0-0.1); BASO % 0.6 % (0.0-1.0); EOS # 0.5 10*3/uL (0.0-0.4); EOS % 5.3 % (1.0-4.0); HEMATOCRIT 42.5 % (42.0-52.0); LYMPH % 23.3 % (27.0-41.0); MEAN CELL VOLUME 97.7 fl (80.0-94.0); MEAN CORPUSCULAR HGB 30.3 pg (27.0-31.0); MEAN CORPUSCULAR HGB CONC 31.1 g/dl (33.0-37.0); MEAN PLATELET VOLUME 9.1 fl (9.6-12.3); MONO # 0.7 10*3/uL (0.1-1.0); MONO % 8.6 % (3.0-9.0); NEUT # 5.3 10*3/uL (2.3-7.9); PLATELET COUNT AUTOMATED 204 10*3/uL (130-400); RED BLOOD COUNT 4.35 10*6/uL (4.50-5.90); RED CELL DISTRI WIDTH 14.8 % (0-14.5); WHITE BLOOD COUNT 8.5 10*3/uL (4.8-10.8)
[2023-07-26 20:58] LABS: ACT PARTIAL THROMBO TIME 30.2 SECONDS (20.0-32.1)
[2023-07-26 21:13] LABS: ALKALINE PHOSPHATASE 72 U/L (46-116); BUN 18 mg/dl (9-23); CHLORIDE 107 mmol/L (98-107); LIPASE 29 U/L (12-53); POTASSIUM 4.7 mmol/L (3.4-5.1); SGPT/ALT 10 U/L (5-49); TOTAL PROTEIN 6.6 gm/dL (6.0-8.0)
[2023-07-26] MEDS ORDERED: ZITHROMAX250 MG PO (23:05)
[2023-07-26] MEDS ORDERED: PREDNISONE20 M1 PO (23:05)
[2023-07-26] MEDS ORDERED: AZITHROMYCIN 250 MG TAB PO ONE (23:10)
== END 2023-07-27 00:08 | disposition home or self-care (01) ==
LOC: ED 20:06
PROVIDERS: Internal Medicine
DX: J44.1 Chronic obstructive pulmonary disease with (acute) exacerbation (principal); Z87.891 Personal history of nicotine dependence; Z88.0 Allergy status to penicillin; Z79.899 Other long term (current) drug therapy; Z79.2 Long term (current) use of antibiotics; Z98.890 Other specified postprocedural states; Z95.5 Presence of coronary angioplasty implant and graft

== ENCOUNTER → 2023-08-13 | Outpatient (CLI) | payer OTHER ==
[~2023-08-13] MED LIST changes: +PREDNISONE20 M1 PO; +Regadenoson 0.4 MG/5 ML SYR IV ONE; +Technetium Tc 99M Tetrofosmi 0.23 MG KIT IJ SCH
== END | disposition home or self-care (01) ==
LOC: CARD 00:41
PROVIDERS: ATTEND Internal Medicine
DX: I49.3 Ventricular premature depolarization (principal); I45.10 Unspecified right bundle-branch block; I25.119 Atherosclerotic heart disease of native coronary artery with unspecified angina pectoris; R06.02 Shortness of breath

== ENCOUNTER → 2023-09-15 | Outpatient (CLI) | payer OTHER ==
[~2023-09-15] MED LIST changes: -Regadenoson 0.4 MG/5 ML SYR IV ONE; -Technetium Tc 99M Tetrofosmi 0.23 MG KIT IJ SCH
== END | disposition home or self-care (01) ==
LOC: LAB 15:43
PROVIDERS: ATTEND Internal Medicine Critical Care Medicine
DX: R91.1 Solitary pulmonary nodule (principal); J44.9 Chronic obstructive pulmonary disease, unspecified; J45.40 Moderate persistent asthma, uncomplicated; R05.3 Chronic cough; R53.83 Other fatigue; J96.11 Chronic respiratory failure with hypoxia; Z99.81 Dependence on supplemental oxygen; Z68.30 Body mass index [BMI] 30.0-30.9, adult; Z87.891 Personal history of nicotine dependence

== ENCOUNTER 2023-10-17 12:22 | Emergency (ER) | payer OTHER ==
[~2023-10-17] VITALS: Ht 165.1 cm; Wt 90.7 kg
[2023-10-17] MEDS ORDERED: ASPIRIN81 M1 PO (12:52)
[2023-10-17] MEDS ORDERED: IRON325 M1 PO (12:54)
[2023-10-17] MEDS ORDERED: VITAMIN D325 MCG PO (12:54)
[2023-10-17 13:10] LABS: BASO % 0.6 % (0.0-1.0); EOS # 0.6 10*3/uL (0.0-0.4); EOS % 8.8 % (1.0-4.0); HEMATOCRIT 40.5 % (42.0-52.0); LYMPH # 1.4 10*3/uL (1.3-4.4); LYMPH % 20.6 % (27.0-41.0); MEAN CORPUSCULAR HGB 30.1 pg (27.0-31.0); MEAN CORPUSCULAR HGB CONC 31.4 g/dl (33.0-37.0); MEAN PLATELET VOLUME 8.9 fl (9.6-12.3); MONO # 0.8 10*3/uL (0.1-1.0); MONO % 12.3 % (3.0-9.0); NEUT # 3.8 10*3/uL (2.3-7.9); NEUT % 57.4 % (47.0-73.0); PLATELET COUNT AUTOMATED 191 10*3/uL (130-400); RED BLOOD COUNT 4.22 10*6/uL (4.50-5.90); RED CELL DISTRI WIDTH 14.5 % (0-14.5); WHITE BLOOD COUNT 6.7 10*3/uL (4.8-10.8)
[2023-10-17 13:26] LABS: BUN 14 mg/dl (9-23); CHLORIDE 104 mmol/L (98-107); POTASSIUM 4.3 mmol/L (3.4-5.1)
[2023-10-17 14:19] LABS: BILIRUBIN Negative (Negative); BLOOD Negative (Negative); CLARITY Clear (Clear); COLOR Yellow (Yellow); GLUCOSE Negative (Negative); KETONE Negative (Negative); LEUKO ESTERASE Negative (Negative); NITRITE Negative (Negative); PH 5.5 (4.5-8.0)
[2023-10-17 14:29] LABS: WBC 0-2 wbc/hpf (0-5)
== END 2023-10-17 14:37 | disposition home or self-care (01) ==
LOC: ED 12:22
PROVIDERS: Emergency Medicine
DX: R55 Syncope and collapse (principal); M54.50 Low back pain, unspecified; R06.2 Wheezing; E11.9 Type 2 diabetes mellitus without complications; J44.9 Chronic obstructive pulmonary disease, unspecified; Z88.0 Allergy status to penicillin; Z98.890 Other specified postprocedural states; Z87.891 Personal history of nicotine dependence; I25.10 Atherosclerotic heart disease of native coronary artery without angina pectoris

== ENCOUNTER 2024-04-08 10:47 | Emergency (ER) | payer OTHER ==
[~2024-04-08] VITALS: Ht 165.1 cm; Wt 87.1 kg
[~2024-04-08 10:47] MED LIST changes: +ASPIRIN81 M1 PO; +IRON325 M1 PO; +VITAMIN D325 MCG PO
[2024-04-08 11:56] LABS: BASO # 0.1 10*3/uL (0.0-0.1); BASO % 0.6 % (0.0-1.0); EOS # 0.1 10*3/uL (0.0-0.4); EOS % 1.1 % (1.0-4.0); HEMATOCRIT 46.4 % (42.0-52.0); MEAN CELL VOLUME 96.5 fl (80.0-94.0); MEAN CORPUSCULAR HGB 30.4 pg (27.0-31.0); MEAN CORPUSCULAR HGB CONC 31.5 g/dl (33.0-37.0); MONO # 0.7 10*3/uL (0.1-1.0); MONO % 9.4 % (3.0-9.0); NEUT # 4.9 10*3/uL (2.3-7.9); NEUT % 61.8 % (47.0-73.0); PLATELET COUNT AUTOMATED 222 10*3/uL (130-400); RED BLOOD COUNT 4.81 10*6/uL (4.50-5.90); RED CELL DISTRI WIDTH 13.5 % (0-14.5); WHITE BLOOD COUNT 7.9 10*3/uL (4.8-10.8)
[2024-04-08 12:15] LABS: ALKALINE PHOSPHATASE 77 U/L (46-116); BUN 15 mg/dl (9-23); CHLORIDE 103 mmol/L (98-107); LIPASE 18 U/L (12-53); POTASSIUM 4.2 mmol/L (3.4-5.1); SGPT/ALT 14 U/L (5-49); TOTAL PROTEIN 6.9 gm/dL (6.0-8.0)
[2024-04-08 12:17] LABS: BILIRUBIN 1+ (Negative); BLOOD 2+ (Negative); CLARITY Turbid (Clear); GLUCOSE Negative (Negative); KETONE Negative (Negative); LEUKO ESTERASE 2+ (Negative); NITRITE Positive (Negative)
[2024-04-08] MEDS ORDERED: SODIUM CHLORIDE 0.9% 1,000 ML IV ONE (12:25)
[2024-04-08 12:39] LABS: RBC TNTC rbc/hpf (0-2)
[2024-04-08 12:40] LABS: COLOR Red (Yellow)
[2024-04-08] MEDS ORDERED: LEVOFLOXACIN 750 MG TAB PO ONE (13:30)
== END 2024-04-08 13:41 | disposition home or self-care (01) ==
LOC: ED 10:47
PROVIDERS: Physician Assistant Medical
DX: N20.9 Urinary calculus, unspecified (principal); N39.0 Urinary tract infection, site not specified; E11.9 Type 2 diabetes mellitus without complications; I10 Essential (primary) hypertension; E78.5 Hyperlipidemia, unspecified; Z79.899 Other long term (current) drug therapy; Z88.0 Allergy status to penicillin

== ENCOUNTER → 2024-04-14 | Outpatient (CLI) | payer OTHER ==
[2024-04-14 12:18] LABS: BASO # 0.1 10*3/uL (0.0-0.1); BASO % 0.7 % (0.0-1.0); EOS # 0.1 10*3/uL (0.0-0.4); EOS % 1.7 % (1.0-4.0); HEMATOCRIT 45.4 % (42.0-52.0); MEAN CELL VOLUME 96.8 fl (80.0-94.0); MEAN CORPUSCULAR HGB 30.3 pg (27.0-31.0); MEAN CORPUSCULAR HGB CONC 31.3 g/dl (33.0-37.0); MEAN PLATELET VOLUME 9.1 fl (9.6-12.3); MONO # 0.6 10*3/uL (0.1-1.0); MONO % 7.9 % (3.0-9.0); NEUT # 4.3 10*3/uL (2.3-7.9); NEUT % 62.5 % (47.0-73.0); PLATELET COUNT AUTOMATED 228 10*3/uL (130-400); RED BLOOD COUNT 4.69 10*6/uL (4.50-5.90); RED CELL DISTRI WIDTH 13.5 % (0-14.5); WHITE BLOOD COUNT 6.9 10*3/uL (4.8-10.8)
[2024-04-14 12:46] LABS: ALKALINE PHOSPHATASE 78 U/L (46-116); BUN 16 mg/dl (9-23); CHLORIDE 100 mmol/L (98-107); POTASSIUM 4.3 mmol/L (3.4-5.1); SGPT/ALT 11 U/L (5-49); TOTAL PROTEIN 6.8 gm/dL (6.0-8.0)
== END | disposition home or self-care (01) ==
LOC: LAB 11:43
PROVIDERS: ATTEND Urology
DX: Z01.818 Encounter for other preprocedural examination (principal); N20.0 Calculus of kidney; I48.91 Unspecified atrial fibrillation; I49.3 Ventricular premature depolarization; I45.2 Bifascicular block; Z95.1 Presence of aortocoronary bypass graft

== ENCOUNTER 2024-07-03 05:35 | Emergency (ER) | payer OTHER | END 2024-07-03 05:36 | LOC: ED 05:35 | DX: I46.9 Cardiac arrest, cause unspecified (principal); Z88.0 Allergy status to penicillin; Z79.84 Long term (current) use of oral hypoglycemic drugs; Z79.899 Other long term (current) drug therapy; Z79.82 Long term (current) use of aspirin; Z98.890 Other specified postprocedural states; Z95.5 Presence of coronary angioplasty implant and graft; Z87.891 Personal history of nicotine dependence ==